=== PATIENT | female | born 1960 | race Caucasian/White ===

== ENCOUNTER → 2020-12-14 | Outpatient (CLI) | payer OTHER | LOC: HEART CORB 12-02 13:30 | DX: R94.31 Abnormal electrocardiogram [ECG] [EKG] (principal); R06.02 Shortness of breath; R93.1 Abnormal findings on diagnostic imaging of heart and coronary circulation; I34.8 Other nonrheumatic mitral valve disorders | CPT/HCPCS: 93306 ==